=== PATIENT | female | born 1980 | race Caucasian/White ===

== ENCOUNTER 2016-12-07 22:46 | Emergency (ER) | payer OTHER ==
--- NOTE | 2016-12-08 01:35 | ED NURSING NOTES ---
Clinical Report - Nurses [facility] [address] [place] [address] 12/07/2016 22:47 Patient: ADRIANA MORENO TRIAGE Triage time 22:58. Acuity: LEVEL 3. Chief Complaint: HEADACHE, DIZZINESS, WEAKNESS, DECREASED VISION and NAUSEA. Alert. No acute distress. --23:03 Angie Barker R.N. 22:57 12/07/16. BP: 184/116. HR: 90. RR: 16 (regular and unlabored). O2 saturation: 100% on room air. Temp: 98.2 F (oral). [place] pain scale: 2/10. --23:03 Angie Barker R.N. Weight: 63.5 kg stated. Height/Length: 62 inches Per Patient. BMI: 25.6. --23:01 Angie Barker R.N. Medications None. --22:59 Angie Barker R.N. Allergies No Known Drug Allergy. --22:59 Angie Barker R.N. History Arrived by private vehicle. Historian: patient. Accompanied by friend. Primary physician ([facility]). This started today. Onset. (at about 1800). 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 PAST MEDICAL HX: Immunizations: up-to-date. Last normal menstrual period now. SOCIAL HX: Light tobacco smoker (cigarette)- less than 1/2 a pack per day. Occasional alcohol use. History of occasional drug use: marijuana. NUTRITIONAL RISK ASSESSMENT: The nutritional risk assessment revealed no deficiencies. FUNCTIONAL ASSESSMENT: Functional assessment: no impairments noted. --23:03 Angie Barker R.N. ( has Dr appointment scheduled for tomorrow). --23:03 Angie Barker R.N. PROBLEMS: Hypertension. Ovarian Cyst. --23:00 Angie Barker R.N. ADDITIONAL SURGERIES: . Fracture Repair. --23:00 Angie Barker R.N. Interventions ID band on patient. To treatment room. --23:03 Angie Barker R.N. PHYSICAL ASSESSMENT Ambulatory to room. Patient gowned. GENERAL / NEURO / PSYCH: Alert. Oriented X 4. Appears in no acute distress. Appears anxious. HEENT: Mucous membranes are pink. RESPIRATORY: Respirations not labored. CVS: Capillary refill less than 2 seconds. SKIN: Skin is warm and dry. --23:03 Angie Barker R.N. NURSING PROGRESS NOTES Head of bed elevated. Two patient identifiers checked. Call light placed in reach. Side rails up x 1. Bed placed in lowest position. Brakes of bed on. --23:03 Angie Barker R.N. Patient ready for evaluation- chart flagged. --23:03 Angie Barker R.N. 23:40 12/07/2016 Site #1 started via IV in the left antecubital space with an 20g angiocath, with aseptic technique and good blood return; one attempt. Blood drawn: rainbow set. Labeled in the presence of the patient and sent to the lab. Saline lock flushed with 10 mL saline. --23:46 Farhat Babb R.N. EKG time: (2350 PM). EKG was ordered, performed by a tech and shown to the ED physician. --23:53 Praveena Hahn 23:50 12/07/16. BP: 178/107. HR: 85. RR: 16. O2 saturation: 100% on room air. [place] pain scale: 4/10. --23:56 Angie Barker R.N. 23:51 12/07/2016 Labetalol IVP 10 mg given over 2 minute(s) via site #1. Allergies verified and confirmed 5 rights. IV patency established. IV site checked: no pain, redness, or swelling. IV flushed thoroughly pre- and post-medication administration. IVP given by RN. --23:57 Angie Barker R.N. 00:31 12/08/16. BP: 166/95. HR: 74. O2 saturation: 98%. --00:32 Bebeto Kearney R.N. 01:07 12/08/16. BP: 142/84. HR: 75. RR: 15. O2 saturation: 100% on room air. --01:07 Angie Barker R.N. DISPOSITION / DISCHARGE 01:39 12/08/16. BP: 149/91. HR: 91. RR: 16. O2 saturation: 100% on room air. Pain level now: 0/10. --01:40 Angie Barker R.N. 01:44 12/08/2016 Site #1 removed upon discharge. Catheter intact. Manual pressure and bandage applied. --01:44 Angie Barker R.N. 01:50. Condition at departure: improved and stable. No learning barriers present. Discharge instructions provided and reviewed with the patient. Patient verbalized understanding. Written instructions provided in Persian. The patient was discharged home and accompanied by spouse. She left the Emergency Department ambulatory and via private vehicle. Spouse driving. --02:02 Angie Barker R.N. Locked/Released at 12/08/2016 2:03 by Angie Barker R.N.
--- NOTE | 2016-12-08 01:35 | ED ORDER SUMMARY ---
..... Patient: ADRIANA MORENO OrderSheet [facility] VisitID: [id number] [address] [place] [address] 36y, F Registration Date/Time: 12/07/2016 ORDER SHEET Weight: 63.5 kg (stated) Allergies: No Known Drug Allergy GENERAL ORDERS: EKG - ER Stat (23:20 12/07/2016 Geoffrey HOLLOWAY) (Ack 23:30 IJurca ER Tech1) (23:53 Miguelito) MEDICATION ORDERS: IV FLUIDS: Labetalol IV 10 mg (HIGH ALERT MEDICATION, NOW) (23:20 12/07/2016 Geoffrey HOLLOWAY) (Ack 23:33 RCollier R.N.) (23:57 RCollier R.N.) IV Saline Lock (23:20 12/07/2016 Geoffrey HOLLOWAY) (Ack 23:33 RCollier R.N.) (23:47 DDavis R.N.) ORDER SHEET NOTES: [Electronically signed by Angie Barker R.N. (02:03 12/08/2016)] [Electronically signed by Maite Johnston MD (17:36 12/17/2016)] [Electronically locked/signed by Angie Barker R.N. (02:03 12/08/2016)]
--- NOTE | 2016-12-08 01:35 | ED NURSING NOTES ---
Clinical Report - Nurses [facility] [address] [place] [address] 12/07/2016 22:47 Patient: ADRIANA MORENO TRIAGE Triage time 22:58. Acuity: LEVEL 3. Chief Complaint: HEADACHE, DIZZINESS, WEAKNESS, DECREASED VISION and NAUSEA. Alert. No acute distress. --23:03 Angie Barker R.N. 22:57 12/07/16. BP: 184/116. HR: 90. RR: 16 (regular and unlabored). O2 saturation: 100% on room air. Temp: 98.2 F (oral). [place] pain scale: 2/10. --23:03 Angie Barker R.N. Weight: 63.5 kg stated. Height/Length: 62 inches Per Patient. BMI: 25.6. --23:01 Angie Barker R.N. Medications None. --22:59 Angie Barker R.N. Allergies No Known Drug Allergy. --22:59 Angie Barker R.N. History Arrived by private vehicle. Historian: patient. Accompanied by friend. Primary physician ([facility]). This started today. Onset. (at about 1800). 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 PAST MEDICAL HX: Immunizations: up-to-date. Last normal menstrual period now. SOCIAL HX: Light tobacco smoker (cigarette)- less than 1/2 a pack per day. Occasional alcohol use. History of occasional drug use: marijuana. NUTRITIONAL RISK ASSESSMENT: The nutritional risk assessment revealed no deficiencies. FUNCTIONAL ASSESSMENT: Functional assessment: no impairments noted. --23:03 Angie Barker R.N. ( has Dr appointment scheduled for tomorrow). --23:03 Angie Barker R.N. PROBLEMS: Hypertension. Ovarian Cyst. --23:00 Angie Barker R.N. ADDITIONAL SURGERIES: . Fracture Repair. --23:00 Angie Barker R.N. Interventions ID band on patient. To treatment room. --23:03 Angie Barker R.N. PHYSICAL ASSESSMENT Ambulatory to room. Patient gowned. GENERAL / NEURO / PSYCH: Alert. Oriented X 4. Appears in no acute distress. Appears anxious. HEENT: Mucous membranes are pink. RESPIRATORY: Respirations not labored. CVS: Capillary refill less than 2 seconds. SKIN: Skin is warm and dry. --23:03 Angie Barker R.N. NURSING PROGRESS NOTES Head of bed elevated. Two patient identifiers checked. Call light placed in reach. Side rails up x 1. Bed placed in lowest position. Brakes of bed on. --23:03 Angie Barker R.N. Patient ready for evaluation- chart flagged. --23:03 Angie Barker R.N. 23:40 12/07/2016 Site #1 started via IV in the left antecubital space with an 20g angiocath, with aseptic technique and good blood return; one attempt. Blood drawn: rainbow set. Labeled in the presence of the patient and sent to the lab. Saline lock flushed with 10 mL saline. --23:46 Farhat Babb R.N. EKG time: (2350 PM). EKG was ordered, performed by a tech and shown to the ED physician. --23:53 Praveena Hahn 23:50 12/07/16. BP: 178/107. HR: 85. RR: 16. O2 saturation: 100% on room air. [place] pain scale: 4/10. --23:56 Angie Barker R.N. 23:51 12/07/2016 Labetalol IVP 10 mg given over 2 minute(s) via site #1. Allergies verified and confirmed 5 rights. IV patency established. IV site checked: no pain, redness, or swelling. IV flushed thoroughly pre- and post-medication administration. IVP given by RN. --23:57 Angie Barker R.N. 00:31 12/08/16. BP: 166/95. HR: 74. O2 saturation: 98%. --00:32 Bebeto Kearney R.N. 01:07 12/08/16. BP: 142/84. HR: 75. RR: 15. O2 saturation: 100% on room air. --01:07 Angie Barker R.N. DISPOSITION / DISCHARGE 01:39 12/08/16. BP: 149/91. HR: 91. RR: 16. O2 saturation: 100% on room air. Pain level now: 0/10. --01:40 Angie Barker R.N. 01:44 12/08/2016 Site #1 removed upon discharge. Catheter intact. Manual pressure and bandage applied. --01:44 Angie Barker R.N. 01:50. Condition at departure: improved and stable. No learning barriers present. Discharge instructions provided and reviewed with the patient. Patient verbalized understanding. Written instructions provided in Malay. The patient was discharged home and accompanied by spouse. She left the Emergency Department ambulatory and via private vehicle. Spouse driving. --02:02 Angie Barker R.N. Locked/Released at 12/08/2016 2:03 by Angie Barker R.N.
--- NOTE | 2016-12-08 01:35 | ED CLINICAL REPORT ---
Clinical Report - Physicians/Mid Levels [facility] [address] [place] [address] 12/07/2016 22:47 Patient: ADRIANA MORENO Time Seen: 23:04. Arrived- By private vehicle. Historian- patient. HISTORY OF PRESENT ILLNESS Chief Complaint: BLOOD PRESSURE ELEVATED. This started years ago, but worse over the past few weeks and is still present. At its maximum, severity described as moderate. When seen in the E.D., severity described as moderate. Modifying factors. Not worsened by anything. Not relieved by anything. No loss of appetite, weight loss, visual disturbance, fatigue or muscle aches. No weakness. She has had a headache. Denies sleep problem. No decreased urine output. (Pt is also nauseated.). Similar symptoms previously: Recent medical care: Not recently seen/assessed. REVIEW OF SYSTEMS No fever, sore throat, sinus drainage, nasal congestion or cough. No difficulty breathing, chest pain, abdominal pain, nausea or vomiting. No diarrhea, black stools, bloody stools, difficulty with urination or skin rash. No back pain, calf pain, headache, blackouts or double vision. No difficulty with ambulation. All systems otherwise negative, except as recorded above. PAST HISTORY Problems: Hypertension. Substance Abuse. Tetanus Status. Immunizations. Ovarian Cyst. Additional Surgeries: . Fracture Repair. Medications: None. Allergies: No Known Drug Allergy. SOCIAL HISTORY Smoker- current status unknown. Occasional alcohol use. History of drug use: marijuana. ADDITIONAL NOTES The nursing notes have been reviewed. PHYSICAL EXAM Vital Signs: 12/07/2016 22:58 BP: 184/116. HR: 90. RR: 16. O2 saturation: 100%. Temp: 98.2 F. [place] pain scale: 2/10. Have been reviewed. Appearance: Alert. No acute distress. Eyes: Pupils equal, round and reactive to light. Eyes normal inspection. ENT: Nose normal. Neck: Normal inspection. CVS: Normal heart rate and rhythm. Heart sounds normal. Pulses normal. Respiratory: No respiratory distress. Breath sounds normal. Abdomen: No visible injury. Soft and nontender. Back: Normal inspection. Skin: Skin warm and dry. Normal skin color. No rash. Normal skin turgor. Extremities: Extremities exhibit normal ROM. No lower extremity edema. Neuro: Oriented X 3. No motor deficit. No sensory deficit. LABS, X-RAYS, AND EKG EKG: EKG time: (2350). No acute process. No acute ischemia. Normal EKG. Normal sinus rhythm. Rate: 68. Normal P waves. Normal BERONICA. Normal QRS complex. Normal axis. Normal ST and T waves, QT and QTc. Prior EKG unavailable. The study has been interpreted contemporaneously by me. The study has been independently viewed by me. The EKG appears to be a good tracing. I agree with and confirm the computer reading of the EKG. Pulse Oximetry: 12/07/2016 22:58 O2 saturation: 100%. (FIO2 - room air). Interpretation: normal. PROGRESS AND PROCEDURES Course of Care: PT was given an IV dose of labetolol, with improvement in her blood pressure. Pt has an appt with her tomorrow, regarding her blood pressure. Patient counseled in person regarding the patient's stable condition, diagnosis and need for follow-up. Concerns were addressed. Old medical records reviewed. Disposition: Discharged. Condition: stable and improved. CLINICAL IMPRESSION Uncontrolled essential hypertension. INSTRUCTIONS Warnings: Further evaluation is necessary. It is very important to follow up with a physician. GENERAL WARNINGS: Return or contact your physician immediately if your condition worsens or changes unexpectedly, if not improving as expected, or if other problems arise. Follow-up: Follow up with your doctor tomorrow as scheduled. Understanding of the discharge instructions verbalized by patient. (Electronically signed by Maite Johnston MD 12/17/2016 17:36)
--- NOTE | 2016-12-08 01:35 | ED ORDER SUMMARY ---
..... Patient: ADRIANA MORENO OrderSheet [facility] VisitID: [id number] [address] [place] [address] 36y, F Registration Date/Time: 12/07/2016 ORDER SHEET Weight: 63.5 kg (stated) Allergies: No Known Drug Allergy GENERAL ORDERS: EKG - ER Stat (23:20 12/07/2016 Geoffrey HOLLOWAY) (Ack 23:30 IJurca ER Tech1) (23:53 Miguelito) MEDICATION ORDERS: IV FLUIDS: Labetalol IV 10 mg (HIGH ALERT MEDICATION, NOW) (23:20 12/07/2016 Geoffrey HOLLOWAY) (Ack 23:33 RCollier R.N.) (23:57 RCollier R.N.) IV Saline Lock (23:20 12/07/2016 Geoffrey HOLLOWAY) (Ack 23:33 RCollier R.N.) (23:47 DDavis R.N.) ORDER SHEET NOTES: [Electronically signed by Angie Barker R.N. (02:03 12/08/2016)] [Electronically signed by Maite Johnston MD (17:36 12/17/2016)] [Electronically locked/signed by Angie Barker R.N. (02:03 12/08/2016)]
--- NOTE | 2016-12-17 17:36 | ED MAR SUMMARY ---
..... Medication Administration Record [facility] [address] [place] [address] Patient: ADRIANA MORENO Visit ID: [id number] 36y, F Weight: 63.5 kg Height/Length: 62 in BMI: 25.6 ALLERGIES: No Known Drug Allergy Given 23:51 12/07/2016 Angie Barker R.N. Medication Administered: LABETALOL [IVP], Dose: 10 mg IVP over 2 minute(s), Site: #1 left . Medication Ordered: Labetalol IV 10 mg (HIGH ALERT MEDICATION, NOW).
--- NOTE | 2016-12-17 17:36 | ED MAR SUMMARY ---
..... Medication Administration Record [facility] [address] [place] [address] Patient: ADRIANA MORENO Visit ID: [id number] 36y, F Weight: 63.5 kg Height/Length: 62 in BMI: 25.6 ALLERGIES: No Known Drug Allergy Given 23:51 12/07/2016 Angie Barker R.N. Medication Administered: LABETALOL [IVP], Dose: 10 mg IVP over 2 minute(s), Site: #1 left . Medication Ordered: Labetalol IV 10 mg (HIGH ALERT MEDICATION, NOW).
--- NOTE | 2016-12-17 17:36 | ED DISCHARGE INSTRUCTIONS ---
Patient: ADRIANA MORENO General Instructions [facility] VisitID: [id number] [place] [place] [address] 36y, F Registration Date/Time: 12/07/2016 Uncontrolled essential hypertension. INSTRUCTIONS Warnings: Further evaluation is necessary. It is very important to follow up with a physician. GENERAL WARNINGS: Return or contact your physician immediately if your condition worsens or changes unexpectedly, if not improving as expected, or if other problems arise. Follow-up: Follow up with your doctor tomorrow as scheduled. Understanding of the discharge instructions verbalized by patient. ADDITIONAL INFORMATION High Blood Pressure --Established High Blood Pressure (Hypertension) is a chronic disease. The cause is unknown in most cases. It can usually be controlled with lifestyle changes and/or medicines. Symptoms of high blood pressure may include headache, dizziness, visual changes, chest pain and shortness of breath. Sometimes it causes no symptoms at all. However, even if there are no symptoms, untreated high blood pressure increases the risk of heart attack, also known as acute myocardial infarction, or AMI, and stroke. It is a serious health risk and should not be ignored. A normal blood pressure is 120/80 or less. The first (top) number is the "systolic" pressure. The second (bottom) number is the "diastolic" pressure. Hypertension exists when either the top number is 140 or higher, OR the bottom number is 90 or higher on repeated measurements. Home Care: All patients with high blood pressure should do the following to lower their pressure. If you are on medicines, then these methods may reduce or eliminate your need for medicines in the future. Begin a weight loss program if you are overweight. Reduce your salt intake. Avoid high salt foods (olives, pickles, smoked meats, salted potato chips, etc.). Do not add salt to your food at the table. Use only small amounts of salt when cooking. Begin an exercise program. Discuss with your doctor what type of exercise program would be best for you. It doesn't have to be difficult. Even brisk walking for 20 minutes three times a week is a good form of exercise. Avoid medicines which contain heart stimulants. This includes many cold and sinus decongestant pills and sprays as well as diet pills. Check the warnings about hypertension on the label. Stimulants such as amphetamine or cocaine could be lethal for someone with hypertension. Never take these. Limit your caffeine intake or switch to caffeine-free products. Stop smoking. If you are a long-time smoker, this can be hard. Enroll in a stop-smoking program to improve your chance of success. Learning how to handle stress better is an important part of any program to lower blood pressure. Learn about relaxation methods such as meditation, yoga or biofeedback. If medicines were prescribed, take them exactly as directed. Missing doses may cause your blood pressure get out of control. Consider buying an automatic blood pressure machine (available at most pharmacies). Use this to monitor your blood pressure at home and report the results to your doctor. Follow Up: Regular visits to your own physician for blood pressure checks and medicine adjustment is an important part of your care. Make a follow-up appointment as directed by our staff. Get Prompt Medical Attention if any of the following occur: Chest pain or shortness of breath Severe headache Throbbing or rushing sound in the ears Nosebleed Sudden severe abdominal pain Extreme drowsiness, confusion or fainting Dizziness or vertigo (dizziness with spinning sensation) Weakness of an arm or leg or one side of the face Difficulty with speech or vision You have been given the following additional information: Hypertension, Established (Electronically signed by Maite Johnston MD 12/17/2016 17:36)
--- NOTE | 2016-12-17 17:36 | ED MED RECONCILIATION SUMMARY ---
Patient: ADRIANA MORENO Medication Reconciliation Report [facility] VisitID: [id number] [address] [place] [address] 36y, F Registration Date/Time: 12/07/2016 Weight: 63.5 kg Height/Length: 62 in. BMI: 25.6 ALLERGIES: No Known Drug Allergy The patient's Home Medications are listed below: NONE. The source(s) of the original Home Medication information: Not obtained. The following Medications were given to the patient in the Emergency Department: Labetalol [IVP] IVP 10 mg, administered: 12/07/2016 11:51:00 PM The following Medications were prescribed to the patient: None.
--- NOTE | 2016-12-17 17:36 | ED MED RECONCILIATION SUMMARY ---
Patient: ADRIANA MORENO Medication Reconciliation Report [facility] VisitID: [id number] [address] [place] [address] 36y, F Registration Date/Time: 12/07/2016 Weight: 63.5 kg Height/Length: 62 in. BMI: 25.6 ALLERGIES: No Known Drug Allergy The patient's Home Medications are listed below: NONE. The source(s) of the original Home Medication information: Not obtained. The following Medications were given to the patient in the Emergency Department: Labetalol [IVP] IVP 10 mg, administered: 12/07/2016 11:51:00 PM The following Medications were prescribed to the patient: None.
== END 2016-12-08 01:50 | disposition home or self-care (01) ==
LOC: ED SRH 22:46
DX: I10 Essential (primary) hypertension (principal)

== ENCOUNTER 2017-02-14 17:57 | Emergency (ER) | payer OTHER ==
--- NOTE | 2017-02-14 18:34 | DIAGNOSTIC IMAGING REPORT ---
PROCEDURE: XR ANKLE 3 OR 4 VIEWS - LEFT INDICATION: TRAUMA/INJURY TECHNIQUE: Four views. COMPARISON: Comparison made radiographs of the left ankle on 11/15/2010. FINDINGS: There is an oblique fracture of the left distal fibula with one third bone width of posterior lateral displacement. There is 1 cm lateral subluxation of the mortise joint with disruption of the medial deltoid ligament. Findings suggest probable vertical fracture of the posterior malleolus IMPRESSION: 1. Moderately displaced oblique fracture of the left distal fibula. 2. Lateral subluxation of the mortise joint with disruption of the medial deltoid ligament. 3. Probable vertical fracture the posterior malleolus.
--- NOTE | 2017-02-14 19:28 | ED NURSING NOTES ---
Clinical Report - Nurses [facility] [address] [place] [address] 02/14/2017 17:57 Patient: ADRIANA MORENO TRIAGE Triage time 1750. Acuity: LEVEL 3. Chief Complaint: INJURY TO LEFT ANKLE. --17:57 Celi Bose R.N. 17:53 02/14/17. BP: 176/104. HR: 98. RR: 22. O2 saturation: 98%. Temp: 98.2 F. Pain level now: 06/14. --17:57 Celi Bose R.N. Weight: 61.2 kg stated. Height/Length: 62 inches Per Patient. BMI: 24.7. --17:55 Celi Bose R.N. Medications Lisinopril Oral 20 mg, daily (ran out 3-4 weeks ago ). --17:56 Celi Bose R.N. Allergies No Known Drug Allergy. --17:55 Celi Bose R.N. History Arrived by EMS. Historian: patient. Accompanied by spouse. Primary physician ([facility]). The patient has had trouble walking. PAST MEDICAL HX: Negative. Last normal menstrual period- now. SURGERY HX: . SOCIAL HX: Light tobacco smoker (cigarette)- less than 1/2 a pack per day. Regular alcohol use. (no ETOH in 11 days). History of drug use: marijuana. --17:57 Celi Bose R.N. PROBLEMS: no known problems. Interventions ID band on patient. To treatment room. --17:57 Celi Bose R.N. PHYSICAL ASSESSMENT 17:50. To room via stretcher. GENERAL / NEURO / PSYCH: Oriented X 4. Appears in pain. EXTREMITIES: Capillary refill is less than 2 seconds in the extremities. Extremity pulses are within normal limits. Left ankle: tenderness and swelling. SKIN: Skin is warm and dry. --17:58 Celi Bose R.N. NURSING PROGRESS NOTES 17:50. Cold pack applied. Reassurance given. Patient identifiers checked. Call light placed in reach. Side rails up. Bed placed in lowest position. Patient ready for evaluation- chart flagged. --17:57 Celi Bose R.N. 18:02 02/14/2017 Site #1 started via IV in the left antecubital space with an 20g angiocath, with aseptic technique and good blood return; one attempt. Blood drawn: rainbow set. Labeled in the presence of the patient and sent to the lab. Saline lock flushed with 10 mL saline. --18:49 Celi Bose R.N. 18:10 02/14/2017 Dilaudid (HYDROmorphone HCl PF) IVP 0.5 mg given over 1 minute(s) via site #1. IV patency established. IV site checked: no pain, redness, or swelling. IV flushed thoroughly pre- and post-medication administration. IVP given by RN. --18:50 Celi Bose R.N. 18:11 02/14/2017 Ativan (LORazepam) IVP 0.5 mg given over 1 minute(s) via site #1. IV patency established. IV site checked: no pain, redness, or swelling. IV flushed thoroughly pre- and post-medication administration. --18:50 Celi Bose R.N. 18:30 02/14/2017 Dilaudid (HYDROmorphone HCl PF) IVP 0.5 mg given over 1 minute(s) via site #1. IV patency established. IV site checked: no pain, redness, or swelling. IV flushed thoroughly pre- and post-medication administration. --18:51 Celi Bose R.N. 18:02. ( IV in, bloods to lab, pt states pain is 10/10). --18:52 Celi Bose R.N. 18:18. ( port x-ray here to do ankle films). --18:52 Celi Bose R.N. 18:32. ( Pt states pain is still 9/10. ERMD notified, additional meds given). --18:55 Celi Bose R.N. 18:32 02/14/17. BP: 163/120. HR: 84. RR: 20. O2 saturation: 98%. Temp: deferred. Pain level now: 05/15. --18:55 Celi Bose R.N. 18:52 02/14/2017 Dilaudid (HYDROmorphone HCl PF) IVP 0.5 mg given over 1 minute(s) via site #1. IV patency established. IV site checked: no pain, redness, or swelling. IV flushed thoroughly pre- and post-medication administration. IVP given by RN. --19:12 Celi Bose R.N. 18:52 02/14/2017 Ativan (LORazepam) IVP 0.5 mg given over 1 minute(s) via site #1. IV patency established. IV site checked: no pain, redness, or swelling. IV flushed thoroughly pre- and post-medication administration. IVP given by RN. --19:13 Celi Bose R.N. 18:50. ( ERMD in to talk with pt regarding findings and follow up. Temp splint placed by EMS removed by ERMD at this time). --19:14 Celi Bose R.N. Sugar tong fiberglass lower extremity splint applied to left ankle by tech. Distal pulses intact, sensation intact and motor within normal limits. --19:27 Dick Gibson, MECHELLE Tech1 19:45 02/14/2017 Dilaudid (HYDROmorphone HCl PF) IVP 0.5 mg given over 1 minute(s) via site #1. Sedative warning given to the patient. IV patency established. IV site checked: no pain, redness, or swelling. IV flushed thoroughly pre- and post-medication administration. IVP given by RN. --20:03 Celi Bose R.N. 19:50 02/14/2017 Site #1 removed upon discharge. Bandaid applied. --20:04 Celi Bose R.N. 19:50 02/14/2017 IV Saline Lock Drip IV Discontinued: STOPPED upon discharge. Total amount infused: 0 mL. --20:04 Juice, Celi, R.N. 20:15. Patient fit with new crutches. Crutch training performed by tech; the patient demonstrated proper use (Pt wanted a towel over the arm-pit rest. this was not advised by both tech and RN due to skin issues and improper use by leaning. Pt still wanted the towel against advise.). --20:19 Ninoska Garcia ( Patient transported to the car via wheelchair.). --20:20 Ninoska Garcia. DISPOSITION / DISCHARGE Condition at departure: improved and stable. No learning barriers present. Discharge instructions provided and reviewed with classroom aide and the patient. Reviewed medication(s) (percocet , motrin). Reviewed crutch walking and splint care instructions (ice, elevate). Patient and classroom aide verbalized understanding. Written instructions provided in Persian. The patient was discharged home and accompanied by classroom aide. She left the Emergency Department on crutches and via private vehicle. Edger Liner driving. --19:26 Celi Bose R.N. 20:10 02/14/17. BP: 172/102. BP. ED physician notified. HR: 88. RR: 20. O2 saturation: 98%. Temp: deferred. Pain level now: 04/14. --22:24 Celi Bose R.N. Locked/Released at 02/14/2017 22:25 by Celi Bose R.N.
--- NOTE | 2017-02-14 19:28 | ED CLINICAL REPORT ---
Clinical Report - Physicians/Mid Levels [facility] [address] [address] 02/14/2017 17:57 Patient: ADRIANA MORENO Time Seen: 18:04 Feb 12 2016. Arrived- By ambulance. Historian- patient and EMS personnel. CPT: ER phys charges level 4 (#[id number]). HISTORY OF PRESENT ILLNESS Chief Complaint: Injury to the left ankle. The injury happened just prior to arrival. The patient sustained an inversion injury (while long boarding). Occurred on a street. Patient is experiencing moderate pain. No other injury. REVIEW OF SYSTEMS The patient complains of pain on weight bearing. She has had swelling, and tingling. No weakness, numbness, suspected foreign body, skin laceration or chest pain. No back pain, neck pain or easy bruising. She has had difficulty walking. All systems otherwise negative, except as recorded above. PAST HISTORY See nurses notes. . Bimalleolar fracture left ankle 5 years ago. Medications: Lisinopril Oral 20 mg, daily (ran out 3-4 weeks ago ). Allergies: No Known Drug Allergy. SOCIAL HISTORY Heavy tobacco smoker (cigarette)- less than 1 pack per day. Alcohol use. History of drug use: marijuana. ADDITIONAL NOTES The nursing notes have been reviewed. PHYSICAL EXAM Vital Signs: 02/14/2017 17:53 BP: 176/104. HR: 98. RR: 22. O2 saturation: 98%. Temp: 98.2 F. Pain level now: 10/10. Appearance: Alert. Appears to be in pain. Patient in moderate distress. Head: Head atraumatic. ENT: Pharynx normal. Neck: Normal inspection. C-spine non-tender. CVS: Normal heart rate and rhythm. Respiratory: No respiratory distress. Abdomen: Nontender. Back: Normal inspection. No tenderness. Skin: Skin intact. Skin warm. Extremities: Ankle instability present. Left lateral ankle: moderate tenderness and swelling and medium sized ecchymosis of the lateral ligaments and lateral malleolus. Limited ROM secondary to pain. Ligamentous laxity present, as evidenced by a positive inversion stress test. Neurovascular intact distally. No foot injury. Extremities otherwise negative. Neuro, Vascular and Tendons: Vascular status intact. Sensation intact. Motor intact. No sensory deficit or weakness. Gait: Gait not tested due to pain. Neuro: Oriented X 3. No motor deficit. No sensory deficit. LABS, X-RAYS, AND EKG Lt Ankle X-ray: Oblique fracture of the distal left fibula. (Widened mortise.). Views: 3 view ankle series. Technique: good. The X-rays were independently viewed by me and interpreted contemporaneously by me. PROGRESS AND PROCEDURES Course of Care: IV NS Dilaudid 0.5 mg IV times 4 Ativan 0.5 mg IV times 2. Patient is stable. Symptoms better. Discussed case with on-call health care provider, (Cydney). Reviewed test results. Agreed upon treatment plan. Health care provider will see patient in office. Patient/family counseled. Disposition: Discharged. Condition: stable. CLINICAL IMPRESSION Closed displaced, moderately angulated left lateral malleolus fracture (Unstable with widened mortise.). INSTRUCTIONS Use crutches until released. Wear fiberglass splint until released. No weight bearing. Warnings: SEDATIVE MEDICATION: You were given sedative medication during your visit. Do not drive or operate dangerous machinery. GENERAL WARNINGS: Return or contact your physician immediately if your condition worsens or changes unexpectedly, if not improving as expected, or if other problems arise. Your Current Medications: CONTINUE TAKING THE FOLLOWING MEDICATIONS: Lisinopril Oral : 20 mg daily, ran out 3-4 weeks ago. Prescription Medications: Oxycodone/APAP 5 mg/325 mg: take 1-2 tablets orally every 4 hours as needed for pain. Dispense twenty (20). No refill. Understanding of the discharge instructions verbalized by patient. Discharge instructions reviewed with and understanding was verbalized by bell ringer. [facility]-up with: [facility], , [address], , [place], [id number] Follow up tomorrow in one day. Call for the next available appointment. (Electronically signed by Doug Garnica MD 02/14/2017 21:55)
--- NOTE | 2017-02-14 19:28 | ED NURSING NOTES ---
Clinical Report - Nurses [facility] [address] [place] [address] 02/14/2017 17:57 Patient: ADRIANA MORENO TRIAGE Triage time 1750. Acuity: LEVEL 3. Chief Complaint: INJURY TO LEFT ANKLE. --17:57 Celi Bose R.N. 17:53 02/14/17. BP: 176/104. HR: 98. RR: 22. O2 saturation: 98%. Temp: 98.2 F. Pain level now: 06/14. --17:57 Celi Bose R.N. Weight: 61.2 kg stated. Height/Length: 62 inches Per Patient. BMI: 24.7. --17:55 Celi Bose R.N. Medications Lisinopril Oral 20 mg, daily (ran out 3-4 weeks ago ). --17:56 Celi Boes R.N. Allergies No Known Drug Allergy. --17:55 Celi Bose R.N. History Arrived by EMS. Historian: patient. Accompanied by spouse. Primary physician ([facility]). The patient has had trouble walking. PAST MEDICAL HX: Negative. Last normal menstrual period- now. SURGERY HX: . SOCIAL HX: Light tobacco smoker (cigarette)- less than 1/2 a pack per day. Regular alcohol use. (no ETOH in 11 days). History of drug use: marijuana. --17:57 Celi Bose R.N. PROBLEMS: no known problems. Interventions ID band on patient. To treatment room. --17:57 Celi Bose R.N. PHYSICAL ASSESSMENT 17:50. To room via stretcher. GENERAL / NEURO / PSYCH: Oriented X 4. Appears in pain. EXTREMITIES: Capillary refill is less than 2 seconds in the extremities. Extremity pulses are within normal limits. Left ankle: tenderness and swelling. SKIN: Skin is warm and dry. --17:58 Celi Bose R.N. NURSING PROGRESS NOTES 17:50. Cold pack applied. Reassurance given. Patient identifiers checked. Call light placed in reach. Side rails up. Bed placed in lowest position. Patient ready for evaluation- chart flagged. --17:57 Celi Bose R.N. 18:02 02/14/2017 Site #1 started via IV in the left antecubital space with an 20g angiocath, with aseptic technique and good blood return; one attempt. Blood drawn: rainbow set. Labeled in the presence of the patient and sent to the lab. Saline lock flushed with 10 mL saline. --18:49 Celi Bose R.N. 18:10 02/14/2017 Dilaudid (HYDROmorphone HCl PF) IVP 0.5 mg given over 1 minute(s) via site #1. IV patency established. IV site checked: no pain, redness, or swelling. IV flushed thoroughly pre- and post-medication administration. IVP given by RN. --18:50 Celi Bose R.N. 18:11 02/14/2017 Ativan (LORazepam) IVP 0.5 mg given over 1 minute(s) via site #1. IV patency established. IV site checked: no pain, redness, or swelling. IV flushed thoroughly pre- and post-medication administration. --18:50 Celi Bose R.N. 18:30 02/14/2017 Dilaudid (HYDROmorphone HCl PF) IVP 0.5 mg given over 1 minute(s) via site #1. IV patency established. IV site checked: no pain, redness, or swelling. IV flushed thoroughly pre- and post-medication administration. --18:51 Celi Bose R.N. 18:02. ( IV in, bloods to lab, pt states pain is 10/10). --18:52 Celi Bose R.N. 18:18. ( port x-ray here to do ankle films). --18:52 Celi Bose R.N. 18:32. ( Pt states pain is still 9/10. ERMD notified, additional meds given). --18:55 Celi Bose R.N. 18:32 02/14/17. BP: 163/120. HR: 84. RR: 20. O2 saturation: 98%. Temp: deferred. Pain level now: 05/15. --18:55 Celi Bose R.N. 18:52 02/14/2017 Dilaudid (HYDROmorphone HCl PF) IVP 0.5 mg given over 1 minute(s) via site #1. IV patency established. IV site checked: no pain, redness, or swelling. IV flushed thoroughly pre- and post-medication administration. IVP given by RN. --19:12 Celi Bose R.N. 18:52 02/14/2017 Ativan (LORazepam) IVP 0.5 mg given over 1 minute(s) via site #1. IV patency established. IV site checked: no pain, redness, or swelling. IV flushed thoroughly pre- and post-medication administration. IVP given by RN. --19:13 Celi Bose R.N. 18:50. ( ERMD in to talk with pt regarding findings and follow up. Temp splint placed by EMS removed by ERMD at this time). --19:14 Celi Bose R.N. Sugar tong fiberglass lower extremity splint applied to left ankle by tech. Distal pulses intact, sensation intact and motor within normal limits. --19:27 Dick Gibson, MECHELLE Tech1 19:45 02/14/2017 Dilaudid (HYDROmorphone HCl PF) IVP 0.5 mg given over 1 minute(s) via site #1. Sedative warning given to the patient. IV patency established. IV site checked: no pain, redness, or swelling. IV flushed thoroughly pre- and post-medication administration. IVP given by RN. --20:03 Celi Bose R.N. 19:50 02/14/2017 Site #1 removed upon discharge. Bandaid applied. --20:04 Celi Bose R.N. 19:50 02/14/2017 IV Saline Lock Drip IV Discontinued: STOPPED upon discharge. Total amount infused: 0 mL. --20:04 Jucie, Celi, R.N. 20:15. Patient fit with new crutches. Crutch training performed by tech; the patient demonstrated proper use (Pt wanted a towel over the arm-pit rest. this was not advised by both tech and RN due to skin issues and improper use by leaning. Pt still wanted the towel against advise.). --20:19 Ninoska Garcia ( Patient transported to the car via wheelchair.). --20:20 Ninoska Garcia. DISPOSITION / DISCHARGE Condition at departure: improved and stable. No learning barriers present. Discharge instructions provided and reviewed with bar helper and the patient. Reviewed medication(s) (percocet , motrin). Reviewed crutch walking and splint care instructions (ice, elevate). Patient and bar helper verbalized understanding. Written instructions provided in Uzbek. The patient was discharged home and accompanied by bar helper. She left the Emergency Department on crutches and via private vehicle. Remotely Operated Vehicle driving. --19:26 Celi Bose R.N. 20:10 02/14/17. BP: 172/102. BP. ED physician notified. HR: 88. RR: 20. O2 saturation: 98%. Temp: deferred. Pain level now: 04/14. --22:24 Celi Bose R.N. Locked/Released at 02/14/2017 22:25 by Celi Bose R.N.
--- NOTE | 2017-02-14 19:28 | ED ORDER SUMMARY ---
..... Patient: ADRIANA MORENO OrderSheet [facility] VisitID: [id number] [address] [place] [address] 36y, F Registration Date/Time: 02/14/2017 ORDER SHEET Weight: 61.2 kg (stated) Allergies: No Known Drug Allergy GENERAL ORDERS: Ankle 3 or 4V Left Urgent (17:59 02/14/2017 DDean R.N. per protocol) (Ack 18:06 PWeiler ER Tech1) (18:33 DDean R.N.) Splint (LE) (Left) (Sugar Tong) (Fiberglass) (19:07 02/14/2017 Marshall HOLLOWAY) (19:26 DDean R.N.) Crutches (19:07 02/14/2017 Marshall HOLLOWAY) (19:26 DDean R.N.) MEDICATION ORDERS: IV FLUIDS: Ativan IV 0.5 mg (NOW) (18:08 02/14/2017 Marshall HOLLOWAY) (Ack 18:33 DDean R.N.) (18:50 DDean R.N.) Dilaudid IV 0.5 mg (NOW) (18:08 02/14/2017 Marshall HOLLOWAY) (Ack 18:33 DDean R.N.) (18:50 DDean R.N.) IV Saline Lock (18:08 02/14/2017 Marshall HOLLOWAY) (Ack 18:33 DDean R.N.) (18:49 DDean R.N.) Dilaudid IV 0.5 mg (HIGH ALERT MEDICATION, NOW) (18:51 02/14/2017 DDean R.N. per protocol) (18:51 DDean R.N.) Dilaudid IV 0.5 mg (NOW) (18:54 02/14/2017 Marshall HOLLOWAY) (Ack 18:55 DDean R.N.) (19:12 DDean R.N.) Ativan IV 0.5 mg (NOW) (18:54 02/14/2017 Marshall HOLLOWAY) (Ack 18:55 DDean R.N.) (19:13 DDiker R.NMicah) Dilaudid IV 0.5 mg (NOW) (20:03 02/14/2017 DDikre Rosenberg.N. verbal order read back to Marshall HOLLOWAY) (20:03 DDiker R.NMicah) ORDER SHEET NOTES: [Electronically signed by Doug Garnica MD (21:55 02/14/2017)] [Electronically signed by Celi Bose R.N. (22:25 02/14/2017)] [Electronically locked/signed by Celi Bose R.N. (22:25 02/14/2017)]
--- NOTE | 2017-02-14 19:28 | ED ORDER SUMMARY ---
..... Patient: ADRIANA MORENO OrderSheet [facility] VisitID: [id number] [address] [place] [address] 36y, F Registration Date/Time: 02/14/2017 ORDER SHEET Weight: 61.2 kg (stated) Allergies: No Known Drug Allergy GENERAL ORDERS: Ankle 3 or 4V Left Urgent (17:59 02/14/2017 DDean R.N. per protocol) (Ack 18:06 PWeiler ER Tech1) (18:33 DDean R.N.) Splint (LE) (Left) (Sugar Tong) (Fiberglass) (19:07 02/14/2017 Marshall HOLLOWAY) (19:26 DDean R.N.) Crutches (19:07 02/14/2017 Marshall HOLLOWAY) (19:26 DDean R.N.) MEDICATION ORDERS: IV FLUIDS: Ativan IV 0.5 mg (NOW) (18:08 02/14/2017 Marshall HOLLOWAY) (Ack 18:33 DDean R.N.) (18:50 DDean R.N.) Dilaudid IV 0.5 mg (NOW) (18:08 02/14/2017 Marshall HOLLOWAY) (Ack 18:33 DDean R.N.) (18:50 DDean R.N.) IV Saline Lock (18:08 02/14/2017 Marshall HOLLOWAY) (Ack 18:33 DDean R.N.) (18:49 DDean R.N.) Dilaudid IV 0.5 mg (HIGH ALERT MEDICATION, NOW) (18:51 02/14/2017 DDean R.N. per protocol) (18:51 DDean R.N.) Dilaudid IV 0.5 mg (NOW) (18:54 02/14/2017 Marshall HOLLOWAY) (Ack 18:55 DDean R.N.) (19:12 DDean R.N.) Ativan IV 0.5 mg (NOW) (18:54 02/14/2017 Marshall HOLLOWAY) (Ack 18:55 DDean R.N.) (19:13 DDiker R.NMicah) Dilaudid IV 0.5 mg (NOW) (20:03 02/14/2017 DDiker Rosenberg.N. verbal order read back to Marshall HOLLOWAY) (20:03 DDiker R.NMicah) ORDER SHEET NOTES: [Electronically signed by Doug Garnica MD (21:55 02/14/2017)] [Electronically signed by Celi Bose R.N. (22:25 02/14/2017)] [Electronically locked/signed by Celi Bose R.N. (22:25 02/14/2017)]
--- NOTE | 2017-02-14 19:28 | ED CLINICAL REPORT ---
Clinical Report - Physicians/Mid Levels [facility] [address] [place] [address] 02/14/2017 17:57 Patient: ADRIANA MORENO Time Seen: 18:04 Feb 12 2016. Arrived- By ambulance. Historian- patient and EMS personnel. CPT: ER phys charges level 4 (#[id number]). HISTORY OF PRESENT ILLNESS Chief Complaint: Injury to the left ankle. The injury happened just prior to arrival. The patient sustained an inversion injury (while long boarding). Occurred on a street. Patient is experiencing moderate pain. No other injury. REVIEW OF SYSTEMS The patient complains of pain on weight bearing. She has had swelling, and tingling. No weakness, numbness, suspected foreign body, skin laceration or chest pain. No back pain, neck pain or easy bruising. She has had difficulty walking. All systems otherwise negative, except as recorded above. PAST HISTORY See nurses notes. . Bimalleolar fracture left ankle 5 years ago. Medications: Lisinopril Oral 20 mg, daily (ran out 3-4 weeks ago ). Allergies: No Known Drug Allergy. SOCIAL HISTORY Heavy tobacco smoker (cigarette)- less than 1 pack per day. Alcohol use. History of drug use: marijuana. ADDITIONAL NOTES The nursing notes have been reviewed. PHYSICAL EXAM Vital Signs: 02/14/2017 17:53 BP: 176/104. HR: 98. RR: 22. O2 saturation: 98%. Temp: 98.2 F. Pain level now: 10/10. Appearance: Alert. Appears to be in pain. Patient in moderate distress. Head: Head atraumatic. ENT: Pharynx normal. Neck: Normal inspection. C-spine non-tender. CVS: Normal heart rate and rhythm. Respiratory: No respiratory distress. Abdomen: Nontender. Back: Normal inspection. No tenderness. Skin: Skin intact. Skin warm. Extremities: Ankle instability present. Left lateral ankle: moderate tenderness and swelling and medium sized ecchymosis of the lateral ligaments and lateral malleolus. Limited ROM secondary to pain. Ligamentous laxity present, as evidenced by a positive inversion stress test. Neurovascular intact distally. No foot injury. Extremities otherwise negative. Neuro, Vascular and Tendons: Vascular status intact. Sensation intact. Motor intact. No sensory deficit or weakness. Gait: Gait not tested due to pain. Neuro: Oriented X 3. No motor deficit. No sensory deficit. LABS, X-RAYS, AND EKG Lt Ankle X-ray: Oblique fracture of the distal left fibula. (Widened mortise.). Views: 3 view ankle series. Technique: good. The X-rays were independently viewed by me and interpreted contemporaneously by me. PROGRESS AND PROCEDURES Course of Care: IV NS Dilaudid 0.5 mg IV times 4 Ativan 0.5 mg IV times 2. Patient is stable. Symptoms better. Discussed case with on-call health care provider, (Cydney). Reviewed test results. Agreed upon treatment plan. Health care provider will see patient in office. Patient/family counseled. Disposition: Discharged. Condition: stable. CLINICAL IMPRESSION Closed displaced, moderately angulated left lateral malleolus fracture (Unstable with widened mortise.). INSTRUCTIONS Use crutches until released. Wear fiberglass splint until released. No weight bearing. Warnings: SEDATIVE MEDICATION: You were given sedative medication during your visit. Do not drive or operate dangerous machinery. GENERAL WARNINGS: Return or contact your physician immediately if your condition worsens or changes unexpectedly, if not improving as expected, or if other problems arise. Your Current Medications: CONTINUE TAKING THE FOLLOWING MEDICATIONS: Lisinopril Oral : 20 mg daily, ran out 3-4 weeks ago. Prescription Medications: Oxycodone/APAP 5 mg/325 mg: take 1-2 tablets orally every 4 hours as needed for pain. Dispense twenty (20). No refill. Understanding of the discharge instructions verbalized by patient. Discharge instructions reviewed with and understanding was verbalized by facilities locator. Follow-up with: [facility], , [address], , [place], [address] Follow up tomorrow in one day. Call for the next available appointment. (Electronically signed by Doug Garnica MD 02/14/2017 21:55)
--- NOTE | 2017-02-14 22:25 | ED DISCHARGE INSTRUCTIONS ---
Patient: ADRIANA MORENO General Instructions [facility] VisitID: [id number] [address] [place] [address] 36y, F Registration Date/Time: 02/14/2017 Closed displaced, moderately angulated left lateral malleolus fracture (Unstable with widened mortise.). INSTRUCTIONS Use crutches until released. Wear fiberglass splint until released. No weight bearing. Warnings: SEDATIVE MEDICATION: You were given sedative medication during your visit. Do not drive or operate dangerous machinery. GENERAL WARNINGS: Return or contact your physician immediately if your condition worsens or changes unexpectedly, if not improving as expected, or if other problems arise. Your Current Medications: CONTINUE TAKING THE FOLLOWING MEDICATIONS: Lisinopril Oral : 20 mg daily, ran out 3-4 weeks ago. Prescription Medications: Oxycodone/APAP 5 mg/325 mg: take 1-2 tablets orally every 4 hours as needed for pain. Dispense twenty (20). No refill. Understanding of the discharge instructions verbalized by patient. Discharge instructions reviewed with and understanding was verbalized by puffer tender. Follow-up with: [facility], , [address], [place], [id number] Follow up tomorrow in one day. Call for the next available appointment. ADDITIONAL INFORMATION Fracture,Ankle, Distal Fibula You have a fracture (broken bone) of the end of the fibula bone. This is one of two bones that support the ankle joint. Home Care: You will be given a splint, cast or special boot to prevent movement at the site of injury. Do not put weight on a splint; it will break. Follow your doctor's advice regarding when to begin bearing weight on a cast or boot. Keep your leg elevated when sitting or lying down. When sleeping, place a pillow under the injured leg. When sitting, support the injured leg so it is level with your waist. This is very important during the first 48 hours. Keep the cast/splint completely dry at all times. When bathing, protect the cast/splint with a large plastic bag, rubber-banded at the top end. If a fiberglass cast or splint gets wet, you can dry it with a hair-dryer. Place an ice pack (ice cubes in a plastic bag, wrapped in a towel) on the splint/cast over the injured area for 20 minutes every 2 hours during the first day.You can place the ice pack directly over the splint/cast. Continue this 3-4 times a day for the next two days. You may use acetaminophen (Tylenol) or ibuprofen (Motrin, Advil) to control pain, unless another pain medicine was prescribed. [NOTE: If you have chronic liver or kidney disease or ever had a stomach ulcer or GI bleeding, talk with your doctor before using these medicines.] Follow Up with your doctor in one week, or as advised by our staff, to be sure the bone is healing properly. If you were given a splint, it may be changed to a cast after the swelling goes down. [NOTE: A radiologist will review any X-rays that were taken. We will notify you of any new findings that may affect your care.] Get Prompt Medical Attention if any of the following occur: The plaster cast or splint becomes wet or soft The fiberglass cast or splint remains wet for more than 24 hours Increased tightness or pain under the cast or splint Toes become swollen, cold, blue, numb or tingly Crutch Walking Crutch Adjustment Make sure the crutches you use are adjusted to fit you. When you stand, there should be room to fit 2-3 fingers between the top of the crutch and your armpit. Your elbow should be slightly bent when holding the hand scalping machine operator. Crutch Walking: Place the crutches forward 12" in front of and 6" to the side of your feet. Lean your weight forward as you push down on the handgrips. Your weight should be on your hands and yourstrong leg, not your armpits . Let your body swing through, landing on the strong leg. Advance the crutches forward again. The crutch and the injured leg should move together. Going Up Steps: ("Up with the good") With both crutches on the same step as your feet, push down on the handgrips. Balancing with very light pressure on the weak leg, let your hands support your weight as you raise your strong leg onto the next higher step. Transfer all your weight to your strong leg (still bent) as you move the crutches up to the next step alongside the strong leg. With your weight evenly balanced on the two crutches and your strong leg, straighten your strong knee as you raise the weak leg up to the next step. Going Down Steps: ("Down with the bad") With both crutches on the same step as your feet, push down on the handgrips. With your weight evenly balanced on the two crutches and your strong leg, bend your strong knee as you lower the weak leg down to the next step. Let your strong leg support you (still bent) as you move the crutches down alongside the weak leg. Transfer your weight to your hands, balancing with very light pressure on the weak leg as you lower your strong leg alongside your weak leg. Splint Care, Fiberglass The following will help you care for your splint: It will take up totwo hours for your fiber glass splint to fully harden; therefore, do notapply any pressure on it during that time or else it may break. To prevent swelling under the splint, for thefirst 48 hours: If the splint is on yourarm, keep it in a sling or raised to shoulder level when sitting or standing; rest it on your chest or on a pillow at your side when lying down. If the splint is on yourfoot, keep it propped up above the level of your waist when sitting or lying. Avoid crutch walking as much as possible during this time. Keep the splint/cast dry at all times. Bathe with your splint/cast well out of the water, protected with a large plastic bag, rubber-banded at the top end. If a fiberglass cast or splint gets wet, you can dry it with a hair-dryer. Follow-up care Follow up with your doctor or this facility as advised. When to seek medical care Get prompt medical attention if any of the following occur: Bad odor from the splint or wound-fluid stains the splint The splint cracks or remains wet over 24 hours Increasing tightness or pressure under the splint Fingers or toes become swollen, cold, blue, numb or tingly Increased pain under the splint Oxycodone Hydrochloride, Acetaminophen Oral tablet What is this medicine? ACETAMINOPHEN; OXYCODONE (a set a MAMTA bossman fen; ox i KOE done) is a pain reliever. It is used to treat mild to moderate pain. How should I use this medicine? Take this medicine by mouth with a full glass of water. Follow the directions on the prescription label. Take your medicine at regular intervals. Do not take your medicine more often than directed. Talk to your console manager regarding the use of this medicine in children. Special care may be needed. Patients over 65 years old may have a stronger reaction and need a smaller dose. What side effects may I notice from receiving this medicine? Side effects that you should report to your doctor or health personal care service provider as soon as possible: allergic reactions like skin rash, itching or hives, swelling of the face, lips, or tongue breathing difficulties, wheezing confusion light headedness or fainting spells severe stomach pain yellowing of the skin or the whites of the eyes Side effects that usually do not require medical attention (report to your doctor or health personal care service provider if they continue or are bothersome): dizziness drowsiness nausea vomiting What may interact with this medicine? alcohol antihistamines barbiturates like amobarbital, butalbital, butabarbital, methohexital, pentobarbital, phenobarbital, thiopental, and secobarbital benztropine drugs for bladder problems like solifenacin, trospium, oxybutynin, tolterodine, hyoscyamine, and methscopolamine drugs for breathing problems like ipratropium and tiotropium drugs for certain stomach or intestine problems like propantheline, homatropine methylbromide, glycopyrrolate, atropine, belladonna, and dicyclomine general anesthetics like etomidate, ketamine, nitrous oxide, propofol, desflurane, enflurane, halothane, isoflurane, and sevoflurane medicines for depression, anxiety, or psychotic disturbances medicines for sleep muscle relaxants naltrexone narcotic medicines (opiates) for pain phenothiazines like perphenazine, thioridazine, chlorpromazine, mesoridazine, fluphenazine, prochlorperazine, promazine, and trifluoperazine scopolamine tramadol trihexyphenidyl What if I miss a dose? If you miss a dose, take it as soon as you can. If it is almost time for your next dose, take only that dose. Do not take double or extra doses. Where should I keep my medicine? Keep out of the reach of children. This medicine can be abused. Keep your medicine in a safe place to protect it from theft. Do not share this medicine with anyone. Selling or giving away this medicine is dangerous and against the law. Store at room temperature between 20 and 25 degrees C (68 and 77 degrees F). Keep container tightly closed. Protect from light. This medicine may cause accidental overdose and if it is taken by other adults, children, or pets. Flush any unused medicine down the toilet to reduce the chance of harm. Do not use the medicine after the expiration date. What should I tell my health care provider before I take this medicine? They need to know if you have any of these conditions: brain tumor Crohn's disease, inflammatory bowel disease, or ulcerative colitis drink more than 3 alcohol containing drinks per day drug abuse or addiction head injury heart or circulation problems kidney disease or problems going to the bathroom liver disease lung disease, asthma, or breathing problems an unusual or allergic reaction to acetaminophen, oxycodone, other opioid analgesics, other medicines, foods, dyes, or preservatives or trying to get breast-feeding What should I watch for while using this medicine? Tell your doctor or health personal care service provider if your pain does not go away, if it gets worse, or if you have new or a different type of pain. You may develop tolerance to the medicine. Tolerance means that you will need a higher dose of the medication for pain relief. Tolerance is normal and is expected if you take this medicine for a long time. Do not suddenly stop taking your medicine because you may develop a severe reaction. Your body becomes used to the medicine. This does NOT mean you are addicted. Addiction is a behavior related to getting and using a drug for a non-medical reason. If you have pain, you have a medical reason to take pain medicine. Your doctor will tell you how much medicine to take. If your doctor wants you to stop the medicine, the dose will be slowly lowered over time to avoid any side effects. You may get drowsy or dizzy. Do not drive, use machinery, or do anything that needs mental alertness until you know how this medicine affects you. Do not stand or sit up quickly, especially if you are an older patient. This reduces the risk of dizzy or fainting spells. Alcohol may interfere with the effect of this medicine. Avoid alcoholic drinks. There are different types of narcotic medicines (opiates) for pain. If you take more than one type at the same time, you may have more side effects. Give your health care provider a list of all medicines you use. Your doctor will tell you how much medicine to take. Do not take more medicine than directed. Call emergency for help if you have problems breathing. The medicine will cause constipation. Try to have a bowel movement at least every 2 to 3 days. If you do not have a bowel movement for 3 days, call your doctor or health personal care service provider. Do not take Tylenol (acetaminophen) or medicines that have acetaminophen with this medicine. Too much acetaminophen can be very dangerous. Many nonprescription medicines contain acetaminophen. Always read the labels carefully to avoid taking more acetaminophen. You have been given the following additional information: Ankle Fracture (Distal Fibula), Closed Crutch Walking Splint Care, Fiberglass Oxycodone Hydrochloride, Acetaminophen Oral tablet No weight bearing. (Electronically signed by Doug Garnica MD 02/14/2017 21:55)
--- NOTE | 2017-02-14 22:25 | ED MED RECONCILIATION SUMMARY ---
Patient: ADRIANA MORENO Medication Reconciliation Report [facility] VisitID: [id number] [address] [place] [address] 36y, F Registration Date/Time: 02/14/2017 Weight: 61.2 kg Height/Length: 62 in. BMI: 24.7 ALLERGIES: No Known Drug Allergy The patient's Home Medications are listed below: CONTINUE TAKING THE FOLLOWING MEDICATIONS: Lisinopril Oral 20 mg, daily, ran out 3-4 weeks ago The source(s) of the original Home Medication information: Not obtained. The following Medications were given to the patient in the Emergency Department: Dilaudid [IVP] IVP 0.5 mg, administered: 02/14/2017 6:10:00 PM Ativan [IVP] IVP 0.5 mg, administered: 02/14/2017 6:11:00 PM Dilaudid [IVP] IVP 0.5 mg, administered: 02/14/2017 6:30:00 PM Dilaudid [IVP] IVP 0.5 mg, administered: 02/14/2017 6:52:00 PM Ativan [IVP] IVP 0.5 mg, administered: 02/14/2017 6:52:00 PM Dilaudid [IVP] IVP 0.5 mg, administered: 02/14/2017 7:45:00 PM The following Medications were prescribed to the patient: Oxycodone/APAP 5 mg/325 mg: take 1-2 tablets orally every 4 hours as needed for pain. Dispense twenty (20). No refill. -- Doug Garnica MD
--- NOTE | 2017-02-14 22:25 | ED MAR SUMMARY ---
..... Medication Administration Record [facility] [address] [place] [address] Patient: ADRIANA MORENO Visit ID: [id number] 36y, F Weight: 61.2 kg Height/Length: 62 in BMI: 24.7 ALLERGIES: No Known Drug Allergy Given 18:10 02/14/2017 Celi Bose R.N. Medication Administered: DILAUDID [IVP] (HYDROMORPHONE HCL PF), Dose: 0.5 mg IVP over 1 minute(s), Site: #1 left AC. Medication Ordered: Dilaudid IV 0.5 mg (NOW). Given 18:11 02/14/2017 Celi Bose R.N. Medication Administered: ATIVAN [IVP] (LORAZEPAM), Dose: 0.5 mg IVP over 1 minute(s), Site: #1 left AC. Medication Ordered: Ativan IV 0.5 mg (NOW). Given 18:30 02/14/2017 Celi Bose R.N. Medication Administered: DILAUDID [IVP] (HYDROMORPHONE HCL PF), Dose: 0.5 mg IVP over 1 minute(s), Site: #1 left AC. Medication Ordered: Dilaudid IV 0.5 mg (HIGH ALERT MEDICATION, NOW). Given 18:52 02/14/2017 Celi Bose R.N. Medication Administered: DILAUDID [IVP] (HYDROMORPHONE HCL PF), Dose: 0.5 mg IVP over 1 minute(s), Site: #1 left AC. Medication Ordered: Dilaudid IV 0.5 mg (NOW). Given 18:52 02/14/2017 Celi Bose R.N. Medication Administered: ATIVAN [IVP] (LORAZEPAM), Dose: 0.5 mg IVP over 1 minute(s), Site: #1 left AC. Medication Ordered: Ativan IV 0.5 mg (NOW). Given 19:45 02/14/2017 Celi Bose R.N. Medication Administered: DILAUDID [IVP] (HYDROMORPHONE HCL PF), Dose: 0.5 mg IVP over 1 minute(s), Site: #1 left AC. Medication Ordered: Dilaudid IV 0.5 mg (NOW).
--- NOTE | 2017-02-14 22:25 | ED DISCHARGE INSTRUCTIONS ---
Patient: ADRIANA MORENO General Instructions [facility] VisitID: [id number] [address] [place] [address] 36y, F Registration Date/Time: 02/14/2017 Closed displaced, moderately angulated left lateral malleolus fracture (Unstable with widened mortise.). INSTRUCTIONS Use crutches until released. Wear fiberglass splint until released. No weight bearing. Warnings: SEDATIVE MEDICATION: You were given sedative medication during your visit. Do not drive or operate dangerous machinery. GENERAL WARNINGS: Return or contact your physician immediately if your condition worsens or changes unexpectedly, if not improving as expected, or if other problems arise. Your Current Medications: CONTINUE TAKING THE FOLLOWING MEDICATIONS: Lisinopril Oral : 20 mg daily, ran out 3-4 weeks ago. Prescription Medications: Oxycodone/APAP 5 mg/325 mg: take 1-2 tablets orally every 4 hours as needed for pain. Dispense twenty (20). No refill. Understanding of the discharge instructions verbalized by patient. Discharge instructions reviewed with and understanding was verbalized by manager intensive care. Follow-up with: [facility], , [address], [place], [id number] Follow up tomorrow in one day. Call for the next available appointment. ADDITIONAL INFORMATION Fracture,Ankle, Distal Fibula You have a fracture (broken bone) of the end of the fibula bone. This is one of two bones that support the ankle joint. Home Care: You will be given a splint, cast or special boot to prevent movement at the site of injury. Do not put weight on a splint; it will break. Follow your doctor's advice regarding when to begin bearing weight on a cast or boot. Keep your leg elevated when sitting or lying down. When sleeping, place a pillow under the injured leg. When sitting, support the injured leg so it is level with your waist. This is very important during the first 48 hours. Keep the cast/splint completely dry at all times. When bathing, protect the cast/splint with a large plastic bag, rubber-banded at the top end. If a fiberglass cast or splint gets wet, you can dry it with a hair-dryer. Place an ice pack (ice cubes in a plastic bag, wrapped in a towel) on the splint/cast over the injured area for 20 minutes every 2 hours during the first day.You can place the ice pack directly over the splint/cast. Continue this 3-4 times a day for the next two days. You may use acetaminophen (Tylenol) or ibuprofen (Motrin, Advil) to control pain, unless another pain medicine was prescribed. [NOTE: If you have chronic liver or kidney disease or ever had a stomach ulcer or GI bleeding, talk with your doctor before using these medicines.] Follow Up with your doctor in one week, or as advised by our staff, to be sure the bone is healing properly. If you were given a splint, it may be changed to a cast after the swelling goes down. [NOTE: A radiologist will review any X-rays that were taken. We will notify you of any new findings that may affect your care.] Get Prompt Medical Attention if any of the following occur: The plaster cast or splint becomes wet or soft The fiberglass cast or splint remains wet for more than 24 hours Increased tightness or pain under the cast or splint Toes become swollen, cold, blue, numb or tingly Crutch Walking Crutch Adjustment Make sure the crutches you use are adjusted to fit you. When you stand, there should be room to fit 2-3 fingers between the top of the crutch and your armpit. Your elbow should be slightly bent when holding the hand gem expert. Crutch Walking: Place the crutches forward 12" in front of and 6" to the side of your feet. Lean your weight forward as you push down on the handgrips. Your weight should be on your hands and yourstrong leg, not your armpits . Let your body swing through, landing on the strong leg. Advance the crutches forward again. The crutch and the injured leg should move together. Going Up Steps: ("Up with the good") With both crutches on the same step as your feet, push down on the handgrips. Balancing with very light pressure on the weak leg, let your hands support your weight as you raise your strong leg onto the next higher step. Transfer all your weight to your strong leg (still bent) as you move the crutches up to the next step alongside the strong leg. With your weight evenly balanced on the two crutches and your strong leg, straighten your strong knee as you raise the weak leg up to the next step. Going Down Steps: ("Down with the bad") With both crutches on the same step as your feet, push down on the handgrips. With your weight evenly balanced on the two crutches and your strong leg, bend your strong knee as you lower the weak leg down to the next step. Let your strong leg support you (still bent) as you move the crutches down alongside the weak leg. Transfer your weight to your hands, balancing with very light pressure on the weak leg as you lower your strong leg alongside your weak leg. Splint Care, Fiberglass The following will help you care for your splint: It will take up totwo hours for your fiber glass splint to fully harden; therefore, do notapply any pressure on it during that time or else it may break. To prevent swelling under the splint, for thefirst 48 hours: If the splint is on yourarm, keep it in a sling or raised to shoulder level when sitting or standing; rest it on your chest or on a pillow at your side when lying down. If the splint is on yourfoot, keep it propped up above the level of your waist when sitting or lying. Avoid crutch walking as much as possible during this time. Keep the splint/cast dry at all times. Bathe with your splint/cast well out of the water, protected with a large plastic bag, rubber-banded at the top end. If a fiberglass cast or splint gets wet, you can dry it with a hair-dryer. Follow-up care Follow up with your doctor or this facility as advised. When to seek medical care Get prompt medical attention if any of the following occur: Bad odor from the splint or wound-fluid stains the splint The splint cracks or remains wet over 24 hours Increasing tightness or pressure under the splint Fingers or toes become swollen, cold, blue, numb or tingly Increased pain under the splint Oxycodone Hydrochloride, Acetaminophen Oral tablet What is this medicine? ACETAMINOPHEN; OXYCODONE (a set a MAMTA bossman fen; ox i KOE done) is a pain reliever. It is used to treat mild to moderate pain. How should I use this medicine? Take this medicine by mouth with a full glass of water. Follow the directions on the prescription label. Take your medicine at regular intervals. Do not take your medicine more often than directed. Talk to your shingle weaver regarding the use of this medicine in children. Special care may be needed. Patients over 65 years old may have a stronger reaction and need a smaller dose. What side effects may I notice from receiving this medicine? Side effects that you should report to your doctor or health eye care professional as soon as possible: allergic reactions like skin rash, itching or hives, swelling of the face, lips, or tongue breathing difficulties, wheezing confusion light headedness or fainting spells severe stomach pain yellowing of the skin or the whites of the eyes Side effects that usually do not require medical attention (report to your doctor or health eye care professional if they continue or are bothersome): dizziness drowsiness nausea vomiting What may interact with this medicine? alcohol antihistamines barbiturates like amobarbital, butalbital, butabarbital, methohexital, pentobarbital, phenobarbital, thiopental, and secobarbital benztropine drugs for bladder problems like solifenacin, trospium, oxybutynin, tolterodine, hyoscyamine, and methscopolamine drugs for breathing problems like ipratropium and tiotropium drugs for certain stomach or intestine problems like propantheline, homatropine methylbromide, glycopyrrolate, atropine, belladonna, and dicyclomine general anesthetics like etomidate, ketamine, nitrous oxide, propofol, desflurane, enflurane, halothane, isoflurane, and sevoflurane medicines for depression, anxiety, or psychotic disturbances medicines for sleep muscle relaxants naltrexone narcotic medicines (opiates) for pain phenothiazines like perphenazine, thioridazine, chlorpromazine, mesoridazine, fluphenazine, prochlorperazine, promazine, and trifluoperazine scopolamine tramadol trihexyphenidyl What if I miss a dose? If you miss a dose, take it as soon as you can. If it is almost time for your next dose, take only that dose. Do not take double or extra doses. Where should I keep my medicine? Keep out of the reach of children. This medicine can be abused. Keep your medicine in a safe place to protect it from theft. Do not share this medicine with anyone. Selling or giving away this medicine is dangerous and against the law. Store at room temperature between 20 and 25 degrees C (68 and 77 degrees F). Keep container tightly closed. Protect from light. This medicine may cause accidental overdose and if it is taken by other adults, children, or pets. Flush any unused medicine down the toilet to reduce the chance of harm. Do not use the medicine after the expiration date. What should I tell my health care provider before I take this medicine? They need to know if you have any of these conditions: brain tumor Crohn's disease, inflammatory bowel disease, or ulcerative colitis drink more than 3 alcohol containing drinks per day drug abuse or addiction head injury heart or circulation problems kidney disease or problems going to the bathroom liver disease lung disease, asthma, or breathing problems an unusual or allergic reaction to acetaminophen, oxycodone, other opioid analgesics, other medicines, foods, dyes, or preservatives or trying to get breast-feeding What should I watch for while using this medicine? Tell your doctor or health eye care professional if your pain does not go away, if it gets worse, or if you have new or a different type of pain. You may develop tolerance to the medicine. Tolerance means that you will need a higher dose of the medication for pain relief. Tolerance is normal and is expected if you take this medicine for a long time. Do not suddenly stop taking your medicine because you may develop a severe reaction. Your body becomes used to the medicine. This does NOT mean you are addicted. Addiction is a behavior related to getting and using a drug for a non-medical reason. If you have pain, you have a medical reason to take pain medicine. Your doctor will tell you how much medicine to take. If your doctor wants you to stop the medicine, the dose will be slowly lowered over time to avoid any side effects. You may get drowsy or dizzy. Do not drive, use machinery, or do anything that needs mental alertness until you know how this medicine affects you. Do not stand or sit up quickly, especially if you are an older patient. This reduces the risk of dizzy or fainting spells. Alcohol may interfere with the effect of this medicine. Avoid alcoholic drinks. There are different types of narcotic medicines (opiates) for pain. If you take more than one type at the same time, you may have more side effects. Give your health care provider a list of all medicines you use. Your doctor will tell you how much medicine to take. Do not take more medicine than directed. Call emergency for help if you have problems breathing. The medicine will cause constipation. Try to have a bowel movement at least every 2 to 3 days. If you do not have a bowel movement for 3 days, call your doctor or health eye care professional. Do not take Tylenol (acetaminophen) or medicines that have acetaminophen with this medicine. Too much acetaminophen can be very dangerous. Many nonprescription medicines contain acetaminophen. Always read the labels carefully to avoid taking more acetaminophen. You have been given the following additional information: Ankle Fracture (Distal Fibula), Closed Crutch Walking Splint Care, Fiberglass Oxycodone Hydrochloride, Acetaminophen Oral tablet No weight bearing. (Electronically signed by Doug Garnica MD 02/14/2017 21:55)
--- NOTE | 2017-02-14 22:25 | ED MED RECONCILIATION SUMMARY ---
Patient: ADRIANA MORENO Medication Reconciliation Report [facility] VisitID: [id number] [address] [place] [address] 36y, F Registration Date/Time: 02/14/2017 Weight: 61.2 kg Height/Length: 62 in. BMI: 24.7 ALLERGIES: No Known Drug Allergy The patient's Home Medications are listed below: CONTINUE TAKING THE FOLLOWING MEDICATIONS: Lisinopril Oral 20 mg, daily, ran out 3-4 weeks ago The source(s) of the original Home Medication information: Not obtained. The following Medications were given to the patient in the Emergency Department: Dilaudid [IVP] IVP 0.5 mg, administered: 02/14/2017 6:10:00 PM Ativan [IVP] IVP 0.5 mg, administered: 02/14/2017 6:11:00 PM Dilaudid [IVP] IVP 0.5 mg, administered: 02/14/2017 6:30:00 PM Dilaudid [IVP] IVP 0.5 mg, administered: 02/14/2017 6:52:00 PM Ativan [IVP] IVP 0.5 mg, administered: 02/14/2017 6:52:00 PM Dilaudid [IVP] IVP 0.5 mg, administered: 02/14/2017 7:45:00 PM The following Medications were prescribed to the patient: Oxycodone/APAP 5 mg/325 mg: take 1-2 tablets orally every 4 hours as needed for pain. Dispense twenty (20). No refill. -- Doug Garnica MD
--- NOTE | 2017-02-14 22:25 | ED MAR SUMMARY ---
..... Medication Administration Record [facility] [address] [place] [address] Patient: ADRIANA MORENO Visit ID: [id number] 36y, F Weight: 61.2 kg Height/Length: 62 in BMI: 24.7 ALLERGIES: No Known Drug Allergy Given 18:10 02/14/2017 Celi Bose R.N. Medication Administered: DILAUDID [IVP] (HYDROMORPHONE HCL PF), Dose: 0.5 mg IVP over 1 minute(s), Site: #1 left AC. Medication Ordered: Dilaudid IV 0.5 mg (NOW). Given 18:11 02/14/2017 Celi Bose R.N. Medication Administered: ATIVAN [IVP] (LORAZEPAM), Dose: 0.5 mg IVP over 1 minute(s), Site: #1 left AC. Medication Ordered: Ativan IV 0.5 mg (NOW). Given 18:30 02/14/2017 Celi Bose R.N. Medication Administered: DILAUDID [IVP] (HYDROMORPHONE HCL PF), Dose: 0.5 mg IVP over 1 minute(s), Site: #1 left AC. Medication Ordered: Dilaudid IV 0.5 mg (HIGH ALERT MEDICATION, NOW). Given 18:52 02/14/2017 Celi Bose R.N. Medication Administered: DILAUDID [IVP] (HYDROMORPHONE HCL PF), Dose: 0.5 mg IVP over 1 minute(s), Site: #1 left AC. Medication Ordered: Dilaudid IV 0.5 mg (NOW). Given 18:52 02/14/2017 Celi Bose R.N. Medication Administered: ATIVAN [IVP] (LORAZEPAM), Dose: 0.5 mg IVP over 1 minute(s), Site: #1 left AC. Medication Ordered: Ativan IV 0.5 mg (NOW). Given 19:45 02/14/2017 Celi Bose R.N. Medication Administered: DILAUDID [IVP] (HYDROMORPHONE HCL PF), Dose: 0.5 mg IVP over 1 minute(s), Site: #1 left AC. Medication Ordered: Dilaudid IV 0.5 mg (NOW).
== END 2017-02-14 20:10 | disposition home or self-care (01) ==
LOC: ED SRH 17:57
DX: S82.62XA Displaced fracture of lateral malleolus of left fibula, initial encounter for closed fracture (principal); X50.0XXA Overexertion from strenuous movement or load, initial encounter; Y93.89 Activity, other specified; Y92.410 Unspecified street and highway as the place of occurrence of the external cause; Y99.9 Unspecified external cause status; F17.210 Nicotine dependence, cigarettes, uncomplicated